=== PATIENT | male | born 1950 | race Hispanic/Latino ===

== ENCOUNTER 2018-04-14 15:53 | Emergency (ER) | payer MEDICARE ==
[2018-04-14] MEDS ORDERED: ASPIRIN PO ONE (18:00)
[2018-04-14] MEDS ORDERED: NITRO-BID 2% TP ONE ×2 (18:00→20:59)
--- NOTE | 2018-04-14 18:00 | Emergency Department Report ---
Blank Doc - Documentation Documentation: Patient is a 68-year-old male with past medical history coronary disease who has a pacemaker and one stent from previous heart attack who is complaining of chest pain. Patient states at approximately 11 AM while driving he started getting chest discomfort is just states was a squeezing sensation with radiation to the left shoulder and neck. Patient states there was mild shortness of breath however this is started to subside. Patient states the pain is less now than it was earlier today. Patient denies any cough fevers chills nausea vomiting diarrhea at this time. Patient is apparently is a patient of [facility]. Patient will be moved to a room with a monitor and will be worked up from a cardiac risk stratification standpoint he reassessed
[2018-04-14 18:25] LABS: Basophils % (Auto) 0.4 % (0.0-1.8); Eosinophils # (Auto) 0.1 K/mm3 (0.0-0.4); Eosinophils % (Auto) 0.9 % (0.0-4.3); Hematocrit 43.3 % (35.5-45.6); Hemoglobin 15.2 gm/dl (11.8-15.2); Lymphocytes # (Auto) 1.6 K/mm3 (1.2-5.4); Lymphocytes % (Auto) 16.7 % (13.4-35.0); Mean Corpuscular HGB Conc 35 % (32-34); Mean Corpuscular Hemoglobin 31 pg (28-32); Mean Corpuscular Volume 88 fl (84-94); Monocytes # (Auto) 0.5 K/mm3 (0.0-0.8); Monocytes % (Auto) 5.6 % (0.0-7.3); Platelet Count 167 K/mm3 (140-440); Red Blood Count 4.92 M/mm3 (3.65-5.03); Red Cell Distribution Width 13.1 % (13.2-15.2)
[2018-04-14 18:36] LABS: INR 0.92 (0.87-1.13)
[2018-04-14 18:37] LABS: Partial Thromboplastin Time 24.3 Sec. (24.2-36.6)
[2018-04-14 18:56] LABS: BUN/Creatinine Ratio 25; Blood Urea Nitrogen 15 mg/dL (9-20); Hemolysis Index 8
--- NOTE | 2018-04-14 19:55 | XRay Report ---
FINAL REPORT EXAM: XR CHEST ROUTINE 2V HISTORY: Chest Pain TECHNIQUE: PA and lateral views of the chest PRIORS: None. FINDINGS: Lines, tubes, and devices: Dual lead left subclavian pacemaker terminates in the right atrium and right ventricle. Lungs and pleura: Trachea is normal in position. Lungs are clear of infiltrate, pleural effusion, vascular congestion, or pneumothorax. Cardiomediastinal silhouette: Cardiac and mediastinal silhouettes are unremarkable. Other: Bony structures are intact. IMPRESSION: No acute cardiopulmonary process seen.
[2018-04-14] MEDS ORDERED: TYLENOL #3 PO ONE (20:25)
[2018-04-14] MEDS ORDERED: HumuLIN R IV ONE (20:25)
[2018-04-14] MEDS ORDERED: ASPIRIN ONE (20:59)
--- NOTE | 2018-04-14 22:48 | Cat Scan Report ---
FINAL REPORT EXAM: CT ANGIO CHEST HISTORY: chest pain TECHNIQUE: Enhanced CT of the chest at 2.5 mm axial intervals following a pulmonary embolism protocol. Coronal and sagittal imaging were also obtained. Coronal oblique MIP projections were obtained. Contrast: Intravenous contrast given PRIORS: None. FINDINGS: There is no evidence for pulmonary embolism in the main pulmonary artery, right and left pulmonary arteries or their major distributions. However, CT does not exclude distal pulmonary emboli. Otherwise, the lung parenchyma are expanded and clear with no evidence for parenchymal nodules, infiltrates, congestion, or pleural effusion. There is no evidence for mediastinal, hilar, or axillary adenopathy. Cardiovascular structures are within normal limits. No evidence for ventricular chamber enlargement is seen. Images through the lung bases include the upper abdomen which show no abnormalities of the visualized abdominal viscera. Bony structures demonstrate no focal abnormalities. Osteophytic bridging is present throughout thoracic spine. There is also bridging osteophyte involving the sternomanubrial junction. IMPRESSION: No evidence for pulmonary embolism. Negative CT of the chest.
--- NOTE | 2018-04-14 22:49 | Emergency Department Report ---
HPI - General Chief Complaint: Chest Pain Time Seen by Provider: 04/14/18 17:56 - HPI HPI: The patient is a 68-year-old male with a history of CAD, presents for evaluation of chest pain. The patient reports pressure-like chest pain for the past one day, constant, moderate in severity, radiates to the left arm and neck. He also reports associated dyspnea. The patient denies fever, trauma to the chest, unilateral leg swelling, recent immobilization, history of DVT or PE , hx of recent cancer. ED Past Medical Hx - Past Medical History Previous Medical History?: Yes Hx Hypertension: Yes Hx CVA: Yes Hx Heart Attack/AMI: Yes (1978) Hx Diabetes: Yes Hx GERD: Yes Hx Arthritis: Yes Hx Headaches / Migraines: Yes Hx Asthma: Yes Additional medical history: high cholesterol - Surgical History Past Surgical History?: Yes Hx Coronary Stent: Yes (x3) Additional Surgical History: left leg surgery, pacemaker - Social History Smoking Status: Never Smoker Substance Use Type: None - Medications Home Medications: Home Medications Medication Instructions Recorded Confirmed Last Taken Type Atenolol 50 mg PO DAILY 04/25/15 04/25/15 04/24/15 History Insulin NPH Hum/Reg Insulin Hm 70 units SQ BID 04/25/15 04/25/15 04/24/15 History [HumuLIN 70-30 Vial] Metformin HCl [Metformin] 1,000 mg PO BID 04/25/15 04/25/15 04/24/15 History Oxycodone HCl/Acetaminophen 1 tab PO Q4-6H 04/25/15 04/25/15 04/24/15 History [Percocet 7.5/325 mg] Promethazine HCl 25 mg PO QHS 04/25/15 04/25/15 04/23/15 History Simvastatin 40 mg PO DAILY 04/25/15 04/25/15 04/24/15 History ED Review of Systems ROS: Stated complaint: CHEST PAIN/HEART Other details as noted in HPI Constitutional: denies: fever ENT: denies: throat or neck pain Respiratory: denies: cough, shortness of breath Cardiovascular: reports: chest pain Endocrine: denies unexplained weight loss or gain Gastrointestinal: denies: abdominal pain, nausea Genitourinary: denies: dysuria Musculoskeletal: denies: leg swelling Skin: denies: rash Neurological: denies: headache Hematological/Lymphatic: denies: easy bleeding or easy bruising Psych: denies sadness or hopelessness Physical Exam - Physical Exam Vital Signs: Vital Signs 04/14/18 04/14/18 04/14/18 16:08 18:17 18:19 Temperature 98.8 F Pulse Rate 78 64 Respiratory 16 16 18 Rate Blood Pressure 151/76 Blood Pressure 150/71 [Right] O2 Sat by Pulse 95 96 Oximetry 04/14/18 04/14/18 19:00 21:35 Temperature Pulse Rate 62 75 Respiratory 18 Rate Blood Pressure 151/75 Blood Pressure 139/75 [Right] O2 Sat by Pulse 99 Oximetry Physical Exam: General: well-nourished, well-developed, no acute distress Head: Normocephalic, atraumatic Eyes: normal sclera ENT: Mucous membranes are pink and moist Neck: trachea midline, neck supple, No neck stiffness, no cervical adenopathy Respiratory: Breath sounds equal bilaterally, no wheezing, rales, or rhonchi Cardio: S1 and S2 present, no murmurs, rubs, gallops, capillary refill is brisk Abdomen: Normoactive bowel sounds, soft abdomen, no rigidity, no guarding or rebound tenderness Musc: No pitting edema Skin: No rash Neuro: no facial drooping, normal speech Psych: Normal affect ED Course Vital Signs 04/14/18 04/14/18 04/14/18 16:08 18:17 18:19 Temperature 98.8 F Pulse Rate 78 64 Respiratory 16 16 18 Rate Blood Pressure 151/76 Blood Pressure 150/71 [Right] O2 Sat by Pulse 95 96 Oximetry 04/14/18 04/14/18 19:00 21:35 Temperature Pulse Rate 62 75 Respiratory 18 Rate Blood Pressure 151/75 Blood Pressure 139/75 [Right] O2 Sat by Pulse 99 Oximetry ED Medical Decision Making - Lab Data Result diagrams: 04/14/18 18:10 04/14/18 18:10 - Medical Decision Making The patient was seen and examined by myself. The patient is placed on a unified communications engineer and continuous pulse ox. On initial evaluation, the patient was found to be in no distress. EKG was negative for findings suggestive of acute cardiac infarct. The patient is given pain medicine. Labs and imaging are obtained. Chest x-ray is negative for pneumothorax, focal consolidation, pulmonary vascular congestion, pleural effusion, or other obvious acute cardiopulmonary disease process. Lab results were non-revealing including negative troponin, WBC, hemoglobin, hematocrit, electrolytes, renal function. CT angiogram of the chest is negative for pulmonary embolism or aortic dissection. The patient was reevaluated and reported that their symptoms were improved. As the patient has chest pain and risk factors for development of acute coronary event, the patient will be admitted for close cardiopulmonary monitoring, serial troponins, and evaluation by cardiology. The physician on-call was contacted. They presented to the emergency department and evaluated the patient. They agreed to admit the patient. The ED admit order was placed. The patient was admitted in guarded condition. Critical care attestation.: If time is entered above; I have spent that time in minutes in the direct care of this critically ill patient, excluding procedure time. ED Disposition Clinical Impression: Acute chest pain, Dehydration, Acute hyperglycemia Disposition: 09 OP ADMIT IP TO THIS HOSP Is pt being admited?: Yes Does the pt Need Aspirin: Yes Condition: Fair Instructions: Chest Pain (ED) Referrals: CLINT RAMOS MD [Primary Care Provider] - 3-5 Days Time of Disposition: 22:31
[2018-04-14] MEDS ORDERED: BABY ASPIRIN PO ONE (22:54)
[2018-04-14 23:06] VITALS: BP 119/49
--- NOTE | 2018-04-14 23:44 | History and Physical Report ---
Medications and Allergies Allergies Allergy/AdvReac Type Severity Reaction Status Date / Time mushroom Allergy Severe THROAT Verified 04/14/18 16:14 SWELLING AND CLOSING Home Medications Medication Instructions Recorded Confirmed Last Taken Type Atenolol 50 mg PO DAILY 04/25/15 04/25/15 04/24/15 History Insulin NPH Hum/Reg Insulin Hm 70 units SQ BID 04/25/15 04/25/15 04/24/15 History [HumuLIN 70-30 Vial] Metformin HCl [Metformin] 1,000 mg PO BID 04/25/15 04/25/15 04/24/15 History Oxycodone HCl/Acetaminophen 1 tab PO Q4-6H 04/25/15 04/25/15 04/24/15 History [Percocet 7.5/325 mg] Promethazine HCl 25 mg PO QHS 04/25/15 04/25/15 04/23/15 History Simvastatin 40 mg PO DAILY 04/25/15 04/25/15 04/24/15 History Exam - Constitutional Vitals: Temp Pulse Resp BP Pulse Ox 98.8 F 63 12 119/49 97 04/14/18 16:08 04/14/18 22:46 04/14/18 22:46 04/14/18 22:46 04/14/18 22:46 Results - Labs CBC & Chem 7: 04/14/18 18:10 04/14/18 18:10 Labs: Abnormal lab results 04/14/18 04/14/18 04/14/18 Range/Units 18:10 18:10 18:10 MCHC 35 H (32-34) % RDW 13.1 L (13.2-15.2) % Seg Neutrophils % 76.4 H (40.0-70.0) % D-Dimer 266.80 H (0-234) ng/mlDDU Creatinine 0.6 L (0.8-1.5) mg/dL Glucose 304 H (75-100) mg/dL
--- NOTE | 2018-04-14 23:55 | Event Note ---
call to evaluate patient for admission He left AMA
[2018-04-15] MEDS ORDERED: LOVENOX SUB-Q SCH (10:00)
== END 2018-04-14 23:40 | disposition admitted as inpatient to this hospital (09) ==
LOC: ED 15:53
DX: R07.89 Other chest pain (principal); E86.0 Dehydration; E11.65 Type 2 diabetes mellitus with hyperglycemia; I21.9 Acute myocardial infarction, unspecified; K21.9 Gastro-esophageal reflux disease without esophagitis; M19.90 Unspecified osteoarthritis, unspecified site; G43.909 Migraine, unspecified, not intractable, without status migrainosus; J45.909 Unspecified asthma, uncomplicated; E78.00 Pure hypercholesterolemia, unspecified; Z86.73 Personal history of transient ischemic attack (TIA), and cerebral infarction without residual deficits; Z79.4 Long term (current) use of insulin
CPT/HCPCS: 36415; 71046; 71275; 80048; 84484; 85025; 85379; 85610; 85730; 93005; 93010; 96374; 99285; Q9967; J1815

== ENCOUNTER 2021-12-17 01:27 | Observation (INO) | payer MEDICARE ==
--- NOTE | 2021-12-17 02:49 | XRay Report ---
CHEST 1 VIEW 12/17/2021 2:23 AM INDICATION / CLINICAL INFORMATION: GI Bleed. COMPARISON: None available. FINDINGS: SUPPORT DEVICES: Stable position of cardiac pacemaker leads. HEART / MEDIASTINUM: No significant abnormality. LUNGS / PLEURA: No significant pulmonary or pleural abnormality. No pneumothorax. ADDITIONAL FINDINGS: No significant additional findings. IMPRESSION: 1. No acute findings. Signer Name: Raul Salazar MD Signed: 12/17/2021 2:44 AM Workstation Name: [email or web address]
[2021-12-17 03:00] LABS: Basophils % (Auto) 0.6 % (0.0-1.8); Eosinophils # (Auto) 0.1 K/mm3 (0.0-0.4); Eosinophils % (Auto) 1.3 % (0.0-4.3); Hematocrit 36.7 % (35.5-45.6); Hemoglobin 12.2 gm/dl (11.8-15.2); Lymphocytes # (Auto) 0.8 K/mm3 (1.2-5.4); Lymphocytes % (Auto) 11.1 % (13.4-35.0); Mean Corpuscular HGB Conc 33 % (32-34); Mean Corpuscular Volume 94 fl (84-94); Monocytes # (Auto) 0.8 K/mm3 (0.0-0.8); Monocytes % (Auto) 11.2 % (0.0-7.3); Platelet Count 174 K/mm3 (140-440); Red Blood Count 3.93 M/mm3 (3.65-5.03); Red Cell Distribution Width 15.4 % (13.2-15.2)
[2021-12-17 03:09] LABS: INR 1.13 (0.87-1.13)
[2021-12-17 03:10] LABS: Partial Thromboplastin Time 30.8 Sec. (24.2-36.6)
--- NOTE | 2021-12-17 03:18 | Emergency Department Report ---
HPI - General Chief Complaint: GI Bleed Time Seen by Provider: 12/17/21 02:47 - HPI HPI: The patient arrived in his own car saying that for the last couple of weeks he has been having episodes of dark emesis. He thinks that there is blood there. He denies lightheadedness chest pain shortness of breath diarrhea melena or any lower GI bleeding. Nothing makes it better nor worse. Has not taken any medications for this. He lives in a friend's room that is being rented for him. His car was full of bedbugs. He denies abdominal pain. ED Past Medical Hx - Past Medical History Hx Hypertension: Yes Hx CVA: Yes Hx Heart Attack/AMI: Yes (1978) Hx Diabetes: Yes Hx GERD: Yes Hx Arthritis: Yes Hx Headaches / Migraines: Yes Hx Asthma: Yes Additional medical history: high cholesterol - Surgical History Hx Coronary Stent: Yes (x3) Additional Surgical History: left leg surgery, pacemaker - Social History Smoking Status: Never Smoker Substance Use Type: None - Medications Home Medications: Home Medications Medication Instructions Recorded Confirmed Last Taken Type Atenolol 50 mg PO DAILY 04/25/15 04/25/15 04/24/15 History Insulin NPH Hum/Reg Insulin Hm 70 units SQ BID 04/25/15 04/25/15 04/24/15 Histor y [HumuLIN 70-30 Vial] Metformin HCl [Metformin] 1,000 mg PO BID 04/25/15 04/25/15 04/24/15 History Oxycodone HCl/Acetaminophen 1 tab PO Q4-6H 04/25/15 04/25/15 04/24/15 History [Percocet 7.5/325 mg] Promethazine HCl 25 mg PO QHS 04/25/15 04/25/15 04/23/15 History Simvastatin 40 mg PO DAILY 04/25/15 04/25/15 04/24/15 History ED Review of Systems ROS: Stated complaint: BUGS Other details as noted in HPI Comment: All other systems reviewed and negative Physical Exam - Physical Exam Vital Signs: Vital Signs 12/17/21 02:05 Temperature 97.5 F L Pulse Rate 109 H Respiratory 18 Rate Blood Pressure 128/61 O2 Sat by Pulse 97 Oximetry Physical Exam: Physical Exam Constitutional: General: He is not in acute distress. Appearance: He is not diaphoretic. HENT: Head: Normocephalic. The patient's mucous membranes are dry he is got dried vomit on his mouth. Eyes: Pupils: Pupils are equal, round, and reactive to light. Neck: Musculoskeletal: Normal range of motion. Cardiovascular: Rate and Rhythm: Tachycardic rate with regular rhythm. Pulses: Intact distal pulses. Heart sounds: Normal heart sounds. No murmur. Pulmonary: Effort: No respiratory distress. Breath sounds: No wheezing or rales. Chest: Chest wall: No tenderness. Abdominal: General: There is no distension. Palpations: There is no mass. Tenderness: There is no abdominal tenderness. There is no guarding or rebound. Musculoskeletal: Normal range of motion. Skin: General: Skin is warm and dry. The patient has multiple bedbug sores all over his body. Neurological: Mental Status: He is alert and oriented to person, place, and time. Psychiatric: Mood and Affect: Mood and affect normal. Cognition and Memory: Memory normal. Judgment: Judgment normal. Rectal exam showed no masses and Hemoccult examination was negative. ED Course Vital Signs 12/17/21 02:05 Temperature 97.5 F L Pulse Rate 109 H Respiratory 18 Rate Blood Pressure 128/61 O2 Sat by Pulse 97 Oximetry - Reevaluation(s) Reevaluation #1: 12/17/21 04:46 The patient remained hemodynamically stable in the emergency department. He arrived tachycardic and now after 1 L he is in the 90s. Says he looks dehydrated and he is got the social situation with the bedbugs in his car we will keep him for observation and treatment of his dehydration. ED Medical Decision Making - Lab Data Result diagrams: 12/17/21 02:46 12/17/21 02:46 Critical care attestation.: If time is entered above; I have spent that time in minutes in the direct care of this critically ill patient, excluding procedure time. ED Disposition Clinical Impression: Dehydration, Vomiting Disposition: 02 SHORT TERM HOSPITAL Is pt being admited?: Yes Does the pt Need Aspirin: No Condition: Fair Forms: Accompanied Note Time of Disposition: 04:48
[2021-12-17] MEDS ORDERED: ONDANSETRON 4 MG/2 ML INJ IV ONE (03:19)
[2021-12-17] MEDS ORDERED: SODIUM CHLORIDE 0.9% 1000 ML 1,000 ML IV ONE (03:20)
[2021-12-17 03:23] LABS: Alanine Aminotransferase 21 units/L (7-56); Albumin 3.2 g/dL (3.9-5); Blood Urea Nitrogen 11 mg/dL (9-20); Calcium 8.5 mg/dL (8.4-10.2); Hemolysis Index 6
[2021-12-17 03:33] LABS: BUN/Creatinine Ratio 18
[2021-12-17] MEDS ORDERED: ALBUTEROL 2.5 MG/3 ML NEBU IH PRN (05:37)
[2021-12-17] MEDS ORDERED: MORPHINE 2 MG/1 ML INJ IV PRN (05:37)
[2021-12-17] MEDS ORDERED: ACETAMINOPHEN 325 MG TAB PO PRN (05:37)
[2021-12-17] MEDS ORDERED: HYDROmorphone 1 MG/1 ML INJ IV PRN (05:37)
[2021-12-17] MEDS ORDERED: ONDANSETRON 4 MG/2 ML INJ IV PRN (05:37)
[2021-12-17] MEDS ORDERED: DEXTROSE 50% IN WATER (25GM) 50 ML SYRINGE IV PRN (05:39)
[2021-12-17] MEDS ORDERED: SODIUM CHLORIDE 0.9% 1000 ML 1,000 ML IV SCH (05:45)
--- NOTE | 2021-12-17 05:45 | History and Physical Report ---
History of Present Illness Date of examination: 12/17/21 Date of admission: 12/17/21 Chief complaint: Dehydration Rule out GI bleed History of present illness: 71 years old male with history of hypertension, CVA, heart attack, diabetes GERD arthritis was brought to the emergency room arrived in his own car saying that for the last couple of weeks he has been having episodes of dark emesis. He thinks that there is blood there. He denies lightheadedness chest pain shortness of breath diarrhea melena or any lower GI bleeding. Nothing makes it better nor worse. Has not taken any medications for this. He lives in a friend's room that is being rented for him. His car was full of bedbugs. He denies abdominal pain. In the emergency room patient hemoglobin is 12.2 and hematocrit 36.7, BUN 11 creatinine 0.6, glucose 120 but patient looks dehydrated were going to admit the patient we will put the patient on IV fluid, Pepcid ,recheck hemoglobin Past History Past Medical History: acute ND, arthritis, diabetes, GERD, hypertension, hyperlipidemia, stroke, other (Headache, asthma) Past Surgical History: Other (left leg surgery, pacemaker) Social history: no significant social history Family history: no significant family history Medications and Allergies Allergies Allergy/AdvReac Type Severity Reaction Status Date / Time mushroom Allergy Severe THROAT Verified 04/14/18 16:14 SWELLING AND CLOSING Home Medications Medication Instructions Recorded Confirmed Last Taken Type Atenolol 50 mg PO DAILY 04/25/15 04/25/15 04/24/15 History Insulin NPH Hum/Reg Insulin Hm 70 units SQ BID 04/25/15 04/25/15 04/24/15 History [HumuLIN 70-30 Vial] Metformin HCl [Metformin] 1,000 mg PO BID 04/25/15 04/25/15 04/24/15 History Oxycodone HCl/Acetaminophen 1 tab PO Q4-6H 04/25/15 04/25/15 04/24/15 History [Percocet 7.5/325 mg] Promethazine HCl 25 mg PO QHS 04/25/15 04/25/15 04/23/15 History Simvastatin 40 mg PO DAILY 04/25/15 04/25/15 04/24/15 History Active Meds: Active Medications Acetaminophen (Acetaminophen 325 Mg Tab) 650 mg PO Q4H PRN PRN Reason: Pain MILD(1-3)/Fever >100.5/BARRETT Albuterol (Albuterol 2.5 Mg/3 Ml Nebu) 2.5 mg IH Q3HRT PRN PRN Reason: Shortness Of Breath Albuterol/Ipratropium (Ipratropium/Albuterol Sulfate 3 Ml Ampul.Neb) 1 ampul IH Q6HRT RAMIREZ Sodium Chloride (Nacl 0.9% 1000 Ml) 1,000 mls @ 125 mls/hr IV DIRECT RAMIREZ Ondansetron HCl (Ondansetron 4 Mg/2 Ml Inj) 4 mg IV Q8H PRN PRN Reason: Nausea And Vomiting Sodium Chloride (Sodium Chloride 0.9% 10 Ml Flush Syringe) 10 ml IV BID RAMIREZ Sodium Chloride (Sodium Chloride 0.9% 10 Ml Flush Syringe) 10 ml IV PRN PRN PRN Reason: LINE FLUSH Review of Systems All systems: negative Constitutional: other (Dark emesis) Gastrointestinal: vomiting, hematemesis Exam - Constitutional Vitals: Temp Pulse Resp BP Pulse Ox 97.5 F L 89 16 118/76 98 12/17/21 02:05 12/17/21 04:30 12/17/21 04:30 12/17/21 04:30 12/17/21 04:30 General appearance: Present: no acute distress, well-nourished - EENT Eyes: Present: PERRL ENT: hearing intact, clear oral mucosa - Neck Neck: Present: supple, normal ROM - Respiratory Respiratory effort: normal Respiratory: bilateral: CTA - Cardiovascular Heart Sounds: Present: S1 & S2. Absent: rub, click - Extremities Extremities: pulses symmetrical, No edema Peripheral Pulses: within normal limits - Abdominal General gastrointestinal: Present: soft, non-tender, non-distended, normal bowel sounds Male genitourinary: Present: normal - Integumentary Integumentary: Present: clear, warm, dry - Musculoskeletal Musculoskeletal: gait normal, strength equal bilaterally - Psychiatric Psychiatric: appropriate mood/affect, intact judgment & insight - Neurologic Neurologic: CNII-XII intact, moves all extremities HEART Score - HEART Score Troponin: Troponin T < 0.010 ng/mL (0.00-0.029) 12/17/21 02:46 Results - Labs CBC & Chem 7: 12/17/21 02:46 12/17/21 02:46 Labs: Laboratory Last Values WBC 7.2 K/mm3 (4.5-11.0) 12/17/21 02:46 RBC 3.93 M/mm3 (3.65-5.03) 12/17/21 02:46 Hgb 12.2 gm/dl (11.8-15.2) 12/17/21 02:46 Hct 36.7 % (35.5-45.6) 12/17/21 02:46 MCV 94 fl (84-94) 12/17/21 02:46 MCH 31 pg (28-32) 12/17/21 02:46 MCHC 33 % (32-34) 12/17/21 02:46 RDW 15.4 % (13.2-15.2) H 12/17/21 02:46 Plt Count 174 K/mm3 (140-440) 12/17/21 02:46 Lymph % (Auto) 11.1 % (13.4-35.0) L 12/17/21 02:46 Coal % (Auto) 11.2 % (0.0-7.3) H 12/17/21 02:46 Eos % (Auto) 1.3 % (0.0-4.3) 12/17/21 02:46 Baso % (Auto) 0.6 % (0.0-1.8) 12/17/21 02:46 Lymph # (Auto) 0.8 K/mm3 (1.2-5.4) L 12/17/21 02:46 Coal # (Auto) 0.8 K/mm3 (0.0-0.8) 12/17/21 02:46 Eos # (Auto) 0.1 K/mm3 (0.0-0.4) 12/17/21 02:46 Baso # (Auto) 0.0 K/mm3 (0.0-0.1) 12/17/21 02:46 Seg Neutrophils % 75.8 % (40.0-70.0) H 12/17/21 02:46 Seg Neutrophils # 5.5 K/mm3 (1.8-7.7) 12/17/21 02:46 PT 15.8 Sec. (12.2-14.9) H 12/17/21 02:46 INR 1.13 (0.87-1.13) 12/17/21 02:46 APTT 30.8 Sec. (24.2-36.6) 12/17/21 02:46 Sodium 138 mmol/L (137-145) 12/17/21 02:46 Potassium 3.9 mmol/L (3.6-5.0) 12/17/21 02:46 Chloride 102.9 mmol/L (98-107) 12/17/21 02:46 Carbon Dioxide 23 mmol/L (22-30) 12/17/21 02:46 Anion Gap 16 mmol/L 12/17/21 02:46 BUN 11 mg/dL (9-20) 12/17/21 02:46 Creatinine 0.6 mg/dL (0.8-1.3) L 12/17/21 02:46 Estimated GFR > 60 ml/min 12/17/21 02:46 BUN/Creatinine Ratio 18 % 12/17/21 02:46 Glucose 120 mg/dL (75-100) H 12/17/21 02:46 Calcium 8.5 mg/dL (8.4-10.2) 12/17/21 02:46 Total Bilirubin 1.00 mg/dL (0.1-1.2) 12/17/21 02:46 AST 23 units/L (5-40) 12/17/21 02:46 ALT 21 units/L (7-56) 12/17/21 02:46 Alkaline Phosphatase 118 units/L (35-129) 12/17/21 02:46 Troponin T < 0.010 ng/mL (0.00-0.029) 12/17/21 02:46 Total Protein 6.5 g/dL (6.3-8.2) 12/17/21 02:46 Albumin 3.2 g/dL (3.9-5) L 12/17/21 02:46 Albumin/Globulin Ratio 1.0 % 12/17/21 02:46 - Imaging and Cardiology Chest x-ray: report reviewed Assessment and Plan VTE prophylaxis?: Mechanical Plan of care discussed with patient/family: Yes - Patient Problems (1) Dehydration Current Visit: Yes Status: Acute Plan to address problem: Admit the patient to the medical floor. Normal saline at the rate of 100 cc/h. We can encourage the patient to increase p.o. intake. Nutrition evaluation. Recheck BMP in the morning (2) GI bleed Current Visit: Yes Status: Acute Plan to address problem: Patient complains of vomiting dark emesis. Protonix 40 mg IV every 12 hours. We recheck this hemoglobin .consult GI for evaluation (3) Hypertension Current Visit: Yes Status: Acute Plan to address problem: Hydralazine 10 mg IV every 6 hours as needed. We will monitor the blood pressure closely (4) Diabetes Current Visit: Yes Status: Acute Plan to address problem: Humalog sliding scale moderate dose with Accu-Chek before meals and at bedtime. Diabetic education. Recheck BMP in the morning (5) Stroke Current Visit: Yes Status: Acute Plan to address problem: Stable. We will continue the home medication (6) Vomiting Current Visit: Yes Status: Acute Plan to address problem: Protonix 40 mg IV every 12 hours. Zofran 4 mg IV every 6 hours as needed. (7) DVT prophylaxis Current Visit: Yes Status: Acute Plan to address problem: SCD for DVT prophylaxis. Protonix 40 mg IV every 12 hours for GI prophylaxis. Patient is a full code
[2021-12-17] MEDS ORDERED: hydrALAZINE 20 MG/1 ML INJ IV PRN (06:08)
--- NOTE | 2021-12-17 09:40 | Progress Note ---
Assessment and Plan Assessment and plan: -- Dehydration Current Visit: Yes Status: Acute Normal saline at the rate of 100 cc/h. We can encourage the patient to increase p.o. intake. Nutrition evaluation. Recheck BMP in the morning --GI bleed Current Visit: Yes Status: Acute No new episodes of bleeding Patient is hemodynamically stable , H&H stable GI evaluation noted and appreciated Closely monitor , continue IV Protonix GI following --Hypertension/moderate control Current Visit: Yes Status: Acute Hydralazine 10 mg IV every 6 hours as needed. We will monitor the blood pressure closely --Type II diabetes Current Visit: Yes Status: Acute Accu-Chek, sliding scale coverage, ADA diet Long-acting insulin as needed --History of stroke Current Visit: Yes Status: Acute Supportive care --intractable nausea vomiting Current Visit: Yes Status: Acute Protonix 40 mg IV every 12 hours. Zofran 4 mg IV every 6 hours as needed. --Full CODE STATUS --DVT prophylaxis Current Visit: Yes Status: Acute SCD for DVT prophylaxis. Closely monitor overnight If no new episodes of bleeding may discharge him home tomorrow Consults and recommendations noted and appreciated DC planning per case management History Interval history: I have seen and examined the patient at the bedside Patient's chart and medications reviewed Patient was admitted with history of GI bleeding Patient denies any new episodes of GI bleeding since admission Vital signs noted Hospitalist Physical - Constitutional Vitals: Temp Pulse Resp BP Pulse Ox 97.5 F L 97 H 20 118/76 96 12/17/21 02:05 12/17/21 04:46 12/17/21 05:00 12/17/21 05:00 12/17/21 06:42 General appearance: Present: no acute distress, well-nourished - EENT Eyes: Present: PERRL, EOM intact - Neck Neck: Present: supple, normal ROM - Respiratory Respiratory effort: normal Respiratory: bilateral: diminished, negative: rales, rhonchi, wheezing - Cardiovascular Rhythm: regular Heart Sounds: Present: S1 & S2 - Extremities Extremities: no ischemia, No edema - Abdominal General gastrointestinal: soft, non-tender, non-distended, normal bowel sounds - Integumentary Integumentary: Present: clear, warm - Psychiatric Psychiatric: appropriate mood/affect, cooperative - Neurologic Neurologic: CNII-XII intact, moves all extremities HEART Score - HEART Score Troponin: Troponin T < 0.010 ng/mL (0.00-0.029) 12/17/21 02:46 Results - Labs CBC & Chem 7: 12/17/21 02:46 12/17/21 02:46 Labs: Laboratory Last Values WBC 7.2 K/mm3 (4.5-11.0) 12/17/21 02:46 RBC 3.93 M/mm3 (3.65-5.03) 12/17/21 02:46 Hgb 12.2 gm/dl (11.8-15.2) 12/17/21 02:46 Hct 36.7 % (35.5-45.6) 12/17/21 02:46 MCV 94 fl (84-94) 12/17/21 02:46 MCH 31 pg (28-32) 12/17/21 02:46 MCHC 33 % (32-34) 12/17/21 02:46 RDW 15.4 % (13.2-15.2) H 12/17/21 02:46 Plt Count 174 K/mm3 (140-440) 12/17/21 02:46 Lymph % (Auto) 11.1 % (13.4-35.0) L 12/17/21 02:46 [place] % (Auto) 11.2 % (0.0-7.3) H 12/17/21 02:46 Eos % (Auto) 1.3 % (0.0-4.3) 12/17/21 02:46 Baso % (Auto) 0.6 % (0.0-1.8) 12/17/21 02:46 Lymph # (Auto) 0.8 K/mm3 (1.2-5.4) L 12/17/21 02:46 [place] # (Auto) 0.8 K/mm3 (0.0-0.8) 12/17/21 02:46 Eos # (Auto) 0.1 K/mm3 (0.0-0.4) 12/17/21 02:46 Baso # (Auto) 0.0 K/mm3 (0.0-0.1) 12/17/21 02:46 Seg Neutrophils % 75.8 % (40.0-70.0) H 12/17/21 02:46 Seg Neutrophils # 5.5 K/mm3 (1.8-7.7) 12/17/21 02:46 PT 15.8 Sec. (12.2-14.9) H 12/17/21 02:46 INR 1.13 (0.87-1.13) 12/17/21 02:46 APTT 30.8 Sec. (24.2-36.6) 12/17/21 02:46 Sodium 138 mmol/L (137-145) 12/17/21 02:46 Potassium 3.9 mmol/L (3.6-5.0) 12/17/21 02:46 Chloride 102.9 mmol/L (98-107) 12/17/21 02:46 Carbon Dioxide 23 mmol/L (22-30) 12/17/21 02:46 Anion Gap 16 mmol/L 12/17/21 02:46 BUN 11 mg/dL (9-20) 12/17/21 02:46 Creatinine 0.6 mg/dL (0.8-1.3) L 12/17/21 02:46 Estimated GFR > 60 ml/min 12/17/21 02:46 BUN/Creatinine Ratio 18 % 12/17/21 02:46 Glucose 120 mg/dL (75-100) H 12/17/21 02:46 Calcium 8.5 mg/dL (8.4-10.2) 12/17/21 02:46 Total Bilirubin 1.00 mg/dL (0.1-1.2) 12/17/21 02:46 AST 23 units/L (5-40) 12/17/21 02:46 ALT 21 units/L (7-56) 12/17/21 02:46 Alkaline Phosphatase 118 units/L (35-129) 12/17/21 02:46 Troponin T < 0.010 ng/mL (0.00-0.029) 12/17/21 02:46 Total Protein 6.5 g/dL (6.3-8.2) 12/17/21 02:46 Albumin 3.2 g/dL (3.9-5) L 12/17/21 02:46 Albumin/Globulin Ratio 1.0 % 12/17/21 02:46 Active Medications - Current Medications Current Medications: Generic Name Dose Route Start Last Admin Trade Name Freq PRN Reason Stop Dose Admin Acetaminophen 650 mg 12/17/21 05:37 Acetaminophen 325 Mg Tab PO Q4H PRN Pain MILD(1-3)/Fever >100.5/BARRETT Albuterol 2.5 mg 12/17/21 05:37 Albuterol 2.5 Mg/3 Ml Nebu IH Q3HRT PRN Shortness Of Breath Albuterol/Ipratropium 1 ampul 12/17/21 08:00 Ipratropium/Albuterol Sulfate 3 Ml Ampul.Neb IH Q6HRT [facility] Atenolol 50 mg 12/17/21 10:00 Atenolol 50 Mg Tab PO DAILY [facility] Dextrose 0 ml 12/17/21 05:39 Dextrose 50% In Water (25gm) 50 Ml Syringe IV Q30MIN PRN Hypoglycemia Protocol Hydralazine HCl 10 mg 12/17/21 06:08 Hydralazine 20 Mg/1 Ml Inj IV Q6H PRN Blood Pressure Hydromorphone HCl 0.5 mg 12/17/21 05:37 Hydromorphone 1 Mg/1 Ml Inj IV Q3H PRN Pain , Severe (7-10) Sodium Chloride 1,000 mls @ 125 mls/hr 12/17/21 05:45 Nacl 0.9% 1000 Ml IV DIRECT [facility] Insulin Human Lispro 0 unit 12/17/21 07:30 Insulin Lispro 100 Unit/Ml SUB-Q ACHS [facility] Protocol Morphine Sulfate 2 mg 12/17/21 05:37 Morphine 2 Mg/1 Ml Inj IV Q4H PRN Pain, Moderate (4-6) Ondansetron HCl 4 mg 12/17/21 05:37 Ondansetron 4 Mg/2 Ml Inj IV Q8H PRN Nausea And Vomiting Pantoprazole Sodium 40 mg 12/17/21 10:00 Pantoprazole 40 Mg Inj IV BID [facility] Pravastatin Sodium 80 mg 12/17/21 22:00 Pravastatin 80 Mg Tab PO QHS [facility] Sodium Chloride 10 ml 12/17/21 10:00 Sodium Chloride 0.9% 10 Ml Flush Syringe IV BID [facility] Sodium Chloride 10 ml 12/17/21 05:37 Sodium Chloride 0.9% 10 Ml Flush Syringe IV PRN PRN LINE FLUSH
--- NOTE | 2021-12-17 09:54 | Gastroenterology Consultation ---
History of Present Illness - Reason for Consult Consult date: 12/17/21 Hematemesis Requesting physician: BRIGIDA DUMONT - History of Present Illness This is a lethargic 71-year-old gentleman Consulted for hematemesis Patient is lethargic reports he did not sleep well last night and that is why so tired Patient reports for the last 2 to 3 days having moderate periumbilical abdominal pain. Stable. Constant. Sharp. Associated with 3 episodes of vomiting dark red blood small-volume. Reports no vomiting since came to the emergency room. No bowel movements 3 days Obtained/updated/reviewed patient's current medications Past History Past Medical History: acute [place], arthritis, diabetes, GERD, hypertension, hyperlipidemia, stroke, other (Headache, asthma) Past Surgical History: Other (left leg surgery, pacemaker) Social history: no significant social history Family history: no significant family history Medications and Allergies Allergies Allergy/AdvReac Type Severity Reaction Status Date / Time mushroom Allergy Severe THROAT Verified 04/14/18 16:14 SWELLING AND CLOSING Home Medications Medication Instructions Recorded Confirmed Last Taken Type Atenolol 50 mg PO DAILY 04/25/15 04/25/15 04/24/15 History Insulin NPH Hum/Reg Insulin Hm 70 units SQ BID 04/25/15 04/25/15 04/24/15 History [HumuLIN 70-30 Vial] Metformin HCl [Metformin] 1,000 mg PO BID 04/25/15 04/25/15 04/24/15 History Oxycodone HCl/Acetaminophen 1 tab PO Q4-6H 04/25/15 04/25/15 04/24/15 History [Percocet 7.5/325 mg] Promethazine HCl 25 mg PO QHS 04/25/15 04/25/15 04/23/15 History Simvastatin 40 mg PO DAILY 04/25/15 04/25/15 04/24/15 History Active Meds: Active Medications Acetaminophen (Acetaminophen 325 Mg Tab) 650 mg PO Q4H PRN PRN Reason: Pain MILD(1-3)/Fever >100.5/BARRETT Albuterol (Albuterol 2.5 Mg/3 Ml Nebu) 2.5 mg IH Q3HRT PRN PRN Reason: Shortness Of Breath Albuterol/Ipratropium (Ipratropium/Albuterol Sulfate 3 Ml Ampul.Neb) 1 ampul IH Q6HRT [facility] Atenolol (Atenolol 50 Mg Tab) 50 mg PO DAILY [facility] Dextrose (Dextrose 50% In Water (25gm) 50 Ml Syringe) 0 ml IV Q30MIN PRN; Protocol PRN Reason: Hypoglycemia Hydralazine HCl (Hydralazine 20 Mg/1 Ml Inj) 10 mg IV Q6H PRN PRN Reason: Blood Pressure Hydromorphone HCl (Hydromorphone 1 Mg/1 Ml Inj) 0.5 mg IV Q3H PRN PRN Reason: Pain , Severe (7-10) Sodium Chloride (Nacl 0.9% 1000 Ml) 1,000 mls @ 125 mls/hr IV DIRECT [facility] Insulin Human Lispro (Insulin Lispro 100 Unit/Ml) 0 unit SUB-Q ACHS [facility]; Protocol Morphine Sulfate (Morphine 2 Mg/1 Ml Inj) 2 mg IV Q4H PRN PRN Reason: Pain, Moderate (4-6) Ondansetron HCl (Ondansetron 4 Mg/2 Ml Inj) 4 mg IV Q8H PRN PRN Reason: Nausea And Vomiting Pantoprazole Sodium (Pantoprazole 40 Mg Inj) 40 mg IV BID [facility] Pravastatin Sodium (Pravastatin 80 Mg Tab) 80 mg PO QHS [facility] Sodium Chloride (Sodium Chloride 0.9% 10 Ml Flush Syringe) 10 ml IV BID [facility] Sodium Chloride (Sodium Chloride 0.9% 10 Ml Flush Syringe) 10 ml IV PRN PRN PRN Reason: LINE FLUSH Review of Systems - Review of Systems All systems: negative Exam - Constitutional Vital Signs: Temp Pulse Resp BP Pulse Ox 97.5 F L 97 H 20 118/76 96 12/17/21 02:05 12/17/21 04:46 12/17/21 05:00 12/17/21 05:00 12/17/21 06:42 General appearance: no acute distress, disheveled - EENT Eyes: EOM intact - Neck Neck: supple - Respiratory Respiratory effort: normal - Cardiovascular Rhythm: regular - Gastrointestinal General gastrointestinal: Present: soft, tender, normal bowel sounds - Integumentary Integumentary: Present: rash - Psychiatric Psychiatric: appropriate mood/affect, other - Labs CBC & Chem 7: 12/17/21 02:46 12/17/21 02:46 Lab Results: Laboratory Results - last 24 hr 12/17/21 12/17/21 12/17/21 02:46 02:46 02:46 WBC 7.2 RBC 3.93 Hgb 12.2 Hct 36.7 MCV 94 MCH 31 MCHC 33 RDW 15.4 H Plt Count 174 Lymph % (Auto) 11.1 L [place] % (Auto) 11.2 H Eos % (Auto) 1.3 Baso % (Auto) 0.6 Lymph # (Auto) 0.8 L [place] # (Auto) 0.8 Eos # (Auto) 0.1 Baso # (Auto) 0.0 Seg Neutrophils % 75.8 H Seg Neutrophils # 5.5 PT 15.8 H INR 1.13 APTT 30.8 Sodium 138 Potassium 3.9 Chloride 102.9 Carbon Dioxide 23 Anion Gap 16 BUN 11 Creatinine 0.6 L Estimated GFR > 60 BUN/Creatinine Ratio 18 Glucose 120 H Calcium 8.5 Total Bilirubin 1.00 AST 23 ALT 21 Alkaline Phosphatase 118 Troponin T < 0.010 Total Protein 6.5 Albumin 3.2 L Albumin/Globulin Ratio 1.0 Assessment and Plan Given lack of any bowel movements and stable hemoglobin no evidence for significant gastrointestinal blood loss Suspect patient is having simple gastritis No indication as of yet for urgent endoscopic evaluation Therefore recommend avoidance of NSAIDs and continue PPI and will reassess in the morning to determine if patient requires any further treatment - Patient Problems (1) Periumbilic abdominal tenderness Current Visit: Yes Status: Acute (2) GI bleed Current Visit: Yes Status: Acute (3) Vomiting Current Visit: Yes Status: Acute
[2021-12-17] MEDS ORDERED: FAMOTIDINE 20 MG/2 ML INJ IV SCH (10:00)
[2021-12-17] MEDS: IPRATROPIUM/ALBUTEROL SULFATE 3 ML AMPUL.NEB IH SCH ×2 (14:56→16:37)
[2021-12-17] MEDS: INSULIN LISPRO 100 UNIT/ML SUB-Q SCH ×3 (17:05→21:52)
[2021-12-17] MEDS: PANTOPRAZOLE 40 MG INJ IV SCH ×2 (17:12→22:07)
[2021-12-17] MEDS: atenoloL 50 MG TAB PO SCH (17:12)
[2021-12-17 20:34] LABS: Hemoglobin 12.4 gm/dl (11.8-15.2)
[2021-12-17] MEDS ORDERED: PRAVASTATIN 80 MG TAB PO SCH (22:00)
[2021-12-18] MEDS: INSULIN LISPRO 100 UNIT/ML SUB-Q SCH ×2 (07:56→15:42)
--- NOTE | 2021-12-18 08:23 | Gastroenterology Progress Note ---
Assessment and Plan Hemoglobin stable No overt bleeding Suspect patient was having simple gastritis and is improved with avoidance of NSAIDs and PPI From GI standpoint recommend pantoprazole 40 mg daily for 30 days then patient may stop Avoid NSAIDs Patient should follow-up as an outpatient GI will sign off please call us back if we can be of any further assistance - Patient Problems (1) Periumbilic abdominal tenderness Current Visit: Yes Status: Acute (2) GI bleed Current Visit: Yes Status: Acute (3) Vomiting Current Visit: Yes Status: Acute Subjective Date of service: 12/18/21 Principal diagnosis: Hematemesis Interval history: Patient reports bowel movement yesterday not sure the color Denies abdominal pain Denies hematemesis Repeat hemoglobin stable, no drop Objective - Constitutional Vitals: Temp Pulse Resp BP Pulse Ox 98.3 F 74 18 89/53 94 12/18/21 03:33 12/18/21 03:33 12/18/21 03:33 12/18/21 03:33 12/18/21 03:33 General appearance: no acute distress - EENT Eyes: EOM intact ENT: hearing intact - Respiratory Respiratory effort: normal - Integumentary Integumentary: Present: rash - Labs CBC & Chem 7: 12/17/21 20:08 12/17/21 02:46 Labs: Laboratory Results - last 24 hr 12/17/21 12/17/21 12/17/21 17:07 20:08 21:09 Hgb 12.4 Hct 37.0 POC Glucose 85 103 12/18/21 07:31 Hgb Hct POC Glucose 95
[2021-12-18 10:24] LABS: Basophils # (Auto) 0.1 K/mm3 (0.0-0.1); Basophils % (Auto) 0.7 % (0.0-1.8); Eosinophils # (Auto) 0.1 K/mm3 (0.0-0.4); Eosinophils % (Auto) 1.1 % (0.0-4.3); Hematocrit 37.6 % (35.5-45.6); Hemoglobin 12.9 gm/dl (11.8-15.2); Lymphocytes % (Auto) 11.7 % (13.4-35.0); Mean Corpuscular HGB Conc 34 % (32-34); Mean Corpuscular Volume 92 fl (84-94); Monocytes # (Auto) 0.7 K/mm3 (0.0-0.8); Monocytes % (Auto) 8.1 % (0.0-7.3); Platelet Count 166 K/mm3 (140-440); Red Blood Count 4.07 M/mm3 (3.65-5.03); Red Cell Distribution Width 15.5 % (13.2-15.2)
[2021-12-18 10:40] LABS: Blood Urea Nitrogen 11 mg/dL (9-20); Calcium 8.5 mg/dL (8.4-10.2); Hemolysis Index 1
[2021-12-18 10:41] LABS: BUN/Creatinine Ratio 16
[2021-12-18] MEDS: atenoloL 50 MG TAB PO SCH (11:05)
[2021-12-18] MEDS: PANTOPRAZOLE 40 MG INJ IV SCH (11:05)
--- NOTE | 2021-12-18 12:12 | Discharge Summary ---
Providers - Providers Date of Admission: 12/17/21 05:37 Date of discharge: 12/18/21 Attending physician: HILDA FLORES 12/17/21 05:38 Consult to Dietitian/Nutrition [CONS] Routine Physician Instructions: Reason For Exam: Reason for Consult: Malnutrition 12/17/21 05:39 Consult to Dietitian/Nutrition [CONS] Routine Physician Instructions: Reason For Exam: Reason for Consult: Diet education 12/17/21 06:08 Consult to Physician [CONS] Routine Comment: Consulting Provider: LEVON ALMARAZ Physician Instructions: Reason For Exam: Dark emesis Primary care physician: GREIGE [employer] INSPECTOR Hospitalization Condition: Fair Hospital course: -- Dehydration Current Visit: Yes Status: Acute Normal saline at the rate of 100 cc/h. We can encourage the patient to increase p.o. intake. Nutrition evaluation. Recheck BMP in the morning --GI bleed Current Visit: Yes Status: Acute No new episodes of bleeding Patient is hemodynamically stable , H&H stable GI evaluation noted and appreciated Closely monitor , continue IV Protonix GI following --Hypertension/moderate control Current Visit: Yes Status: Acute Hydralazine 10 mg IV every 6 hours as needed. We will monitor the blood pressure closely --Type II diabetes Current Visit: Yes Status: Acute Accu-Chek, sliding scale coverage, ADA diet Long-acting insulin as needed --History of stroke Current Visit: Yes Status: Acute Supportive care --intractable nausea vomiting Current Visit: Yes Status: Acute Protonix 40 mg IV every 12 hours. Zofran 4 mg IV every 6 hours as needed. --Full CODE STATUS Disposition: 01 HOME / SELF CARE / HOMELESS Final Discharge Diagnosis (Prints w/discharge instructions): Dehydration resolved. GI bleeding resolved. Hypertension well controlled. Type 2 diabetes mellitus. History of stroke. Intractable nausea vomiting resolved Time spent for discharge: 35 minb Core Measure Documentation - Palliative Care Palliative Care/ Comfort Measures: Not Applicable - Core Measures Any of the following diagnoses?: none Exam - Constitutional Vitals: Temp Pulse Resp BP Pulse Ox 98.3 F 74 18 89/53 94 12/18/21 03:33 12/18/21 03:33 12/18/21 03:33 12/18/21 03:33 12/18/21 03:33 Plan Activity: advance as tolerated Diet: other (Cardiac diet) Additional Instructions: You are on very high dose of insulin at home, please check with primary care physician before resuming insulin. if you have worsening symptoms contact MD or go to the nearest emergency room as needed. Fall precautions. If you notice any bleeding contact MD or go to the nearest emergency room as needed. Advised to follow primary care physician, private GI per schedule Follow up with: PRIMARY CARE, [Primary Care Provider] - 3-5 Days PADMAJA PALOMO MD [Staff Physician] - 14 Days Forms: Accompanied Note Prescriptions: Pantoprazole [Protonix TAB] 40 mg PO BIDAC #60 tablet
[2021-12-18 13:03] VITALS: BP 95/59
[2021-12-18] MEDS ORDERED: PANTOPRAZOLE 40 MG TAB PO SCH (16:30)
== END 2021-12-18 15:45 | disposition home or self-care (01) ==
LOC: ED 01:27 → 3A 05:37 → INTOOBSV 05:37
PROVIDERS: ADMIT Hospitalist; ATTEND Internal Medicine
DX: K92.2 Gastrointestinal hemorrhage, unspecified (principal); E86.0 Dehydration; I10 Essential (primary) hypertension; E11.9 Type 2 diabetes mellitus without complications; I63.9 Cerebral infarction, unspecified; R11.10 Vomiting, unspecified; M19.90 Unspecified osteoarthritis, unspecified site; K21.9 Gastro-esophageal reflux disease without esophagitis; I25.2 Old myocardial infarction; J45.909 Unspecified asthma, uncomplicated; E78.5 Hyperlipidemia, unspecified; E78.2 Mixed hyperlipidemia; R51.9 Headache, unspecified; Z79.899 Other long term (current) drug therapy; Z98.890 Other specified postprocedural states; Z95.0 Presence of cardiac pacemaker; Z86.73 Personal history of transient ischemic attack (TIA), and cerebral infarction without residual deficits; Z79.4 Long term (current) use of insulin; Z79.84 Long term (current) use of oral hypoglycemic drugs
CPT/HCPCS: 36415; 71045; 80048; 80053; 82962; 84484; 85014; 85018; 85025; 85610; 85730; 96361; 96374; 96375; 96376; 99284; C9113; G0378; J2270; J2405; J7030; Q0162